=== PATIENT | female | born 2000 | race Caucasian/White ===

== ENCOUNTER 2018-04-30 11:02 | Emergency (ER) | payer OTHER ==
[~2018-04-30] VITALS: Ht 154.9 cm; Wt 51.3 kg
[2018-04-30 11:04] VITALS: Ht 154.9 cm; Wt 51.3 kg
[2018-04-30] MEDS ORDERED: SODIUM CHLORIDE 0.9% 1000ML 1,000 ML IV STA (11:31)
[2018-04-30 11:50] LABS: BASO % 0.6 %; BASO ABS # 0.05 K/uL (0-0.2); EOS % 2.6 %; EOS ABS # 0.21 K/uL (0-0.5); HEMOGLOBIN 14.1 g/dL (12.0-16.0); IG# 0.02 K/uL (0.00-0.02); LYMPH ABS # 1.96 K/uL (1.2-3.4); MEAN CELL VOLUME 83.5 fL (80-100); MEAN CORPUSCULAR HEMOGLOBIN 28.7 pg (25-34); MEAN CORPUSCULAR HGB CONC 34.4 g/dl (32-36); MEAN PLATELET VOLUME 10.2 fL (7.4-10.4); MONO % 7.6 %; MONO ABS # 0.62 K/uL (0.11-0.59); NEUT ABS # 5.29 K/uL (1.4-6.5); PLATELET COUNT 262 K/uL (130-400); RED CELL DISTRIBUTION WIDTH CV 12.3 % (11.5-14.5); RED CELL DISTRIBUTION WIDTH SD 37.3 fL (36.4-46.3); WHITE BLOOD COUNT 8.15 K/uL (4.8-10.8)
[2018-04-30] MEDS ORDERED: OPTIRAY 320 IV PRN (12:00)
[2018-04-30 12:01] LABS: ALBUMIN 4.4 gm/dl (3.4-5.0); CALCIUM 8.9 mg/dl (8.5-10.1); CREATININE 0.67 mg/dl (0.60-1.20); POTASSIUM 3.9 mmol/L (3.5-5.1); TOTAL PROTEIN 8.5 gm/dl (6.4-8.2)
[2018-04-30] MEDS ORDERED: FLUO20CA35 PO (12:01)
[2018-04-30] MEDS ORDERED: KLN/5 PO (12:01)
--- NOTE | 2018-04-30 14:09 | DIAGNOSTIC IMAGING REPORT ---
APPENDIX ULTRASOUND HISTORY: 17 years-old Female EVAL RLQ PAIN acute right lower quadrant abdominal pain COMPARISON: None available TECHNIQUE: Multiple real-time sonogram images of the abdominal right lower quadrant were obtained assessing grayscale appearance and color flow FINDINGS: The appendix is not identified. No drainable fluid collections, adenopathy, hyperemia, echogenic fat or hypoperistaltic bowel. IMPRESSION: Nonvisualization of the appendix. No secondary signs to suggest acute appendicitis. The above report was generated using voice recognition software. It may contain grammatical, syntax or spelling errors. Electronically signed by: Lj Mcgill M.D. 04/30/2018 2:08 PM Dictated Date/Time: 04/30/2018 2:08 PM
--- NOTE | 2018-04-30 15:18 | DIAGNOSTIC IMAGING REPORT ---
ABDOMEN AND PELVIS CT WITH IV AND ORAL CONTRAST CT DOSE: 249.50 mGycm HISTORY: Acute right lower quadrant abdominal pain EVAL LOWER ABD PAIN TECHNIQUE: Multiaxial CT images of the abdomen and pelvis were performed following the use of intravenous and oral contrast. A dose lowering technique was utilized adhering to the principles of ALARA. COMPARISON STUDY: Ultrasound of the abdominal right lower quadrant and pelvic ultrasound of same day. FINDINGS: Lung bases appear clear. No pneumatosis or pneumoperitoneum. Imaged inferior cardiac chambers are unremarkable. Liver, spleen, gallbladder, pancreas and adrenal glands are unremarkable. Kidneys, ureters and bladder are within normal limits. Uterus and right adnexum are unremarkable. Peripherally enhancing cystic lesion about the left ovary measures 3.8 x 3.0 cm. Mild free pelvic fluid. The aorta and IVC are unremarkable. There are no pathologically enlarged lymph nodes identified. Patent portal vein. No bowel obstruction or focal bowel wall thickening. The appendix is contrast filled and appears normal. No evidence of acute appendicitis. No acute mesenteric inflammatory changes. Soft tissues and imaged breast parenchyma appear unremarkable. Bones appear intact. IMPRESSION: 1. Peripherally enhancing cystic lesion about the left adnexum measuring 3.8 x 3.0 cm suggests ovarian cyst. Correlation with pelvic ultrasound recommended. Mild free pelvic fluid is likely physiologic. 2. No bowel obstruction or focal bowel wall thickening. Normal appendix. Electronically signed by: Lj Mcgill M.D. 04/30/2018 3:16 PM Dictated Date/Time: 04/30/2018 3:10 PM
--- NOTE | 2018-04-30 17:09 | DIAGNOSTIC IMAGING REPORT ---
PELVIC COMPLETE NON OB CLINICAL HISTORY: EVAL PELVIC PAIN PAIN COMPARISON STUDY: CT abdomen and pelvis same date FINDINGS: The uterus measured 7.6 cm. The endometrial stripe measured 11 mm. The right ovary measured 3.2 cm maximum dimension with normal vascular flow. The left ovary measured 4.9 cm maximum dimension including a 2.6 cm complex left ovarian cyst. There is no ultrasonographic evidence of ovarian torsion. It should be noted that ovarian torsion can be present with normal Doppler ultrasonographic findings. There was no evidence of pathologic free pelvic fluid. IMPRESSION: 1. 2.6 cm complex left ovarian cyst versus hemorrhagic ovarian cyst. 2. Follow-up at a later date is recommended to ensure complete resolution. The above report was generated using voice recognition software. It may contain grammatical, syntax or spelling errors. Electronically signed by: Gómez Calle M.D. 04/30/2018 5:08 PM Dictated Date/Time: 04/30/2018 5:05 PM
--- NOTE | 2018-04-30 17:16 | EMERGENCY ROOM VISIT NOTE ---
History First contact with patient: 11:09 Chief Complaint: ABDOMINAL PAIN Stated Complaint: PAIN UNDER MY BELLY Nursing Triage Summary: Patient c/o lower abd pain x 2 days. History of Present Illness Patient is a 17-year-old female who presents the emergency department for evaluation of pelvic pain 2 days. Patient reports that her symptoms started 2 days ago in the evening, when she developed a pain below her bellybutton. She states that the pain kept her from sleeping, and she has difficulty finding a comfortable position. She did take a Midol which helped to take the edge off and she was able to sleep. When she woke up yesterday morning she was pain- free. She did note feeling subjectively feverish and nauseous throughout the day. Pain returned again around 830 last evening. He was in the same location below the bellybutton, and was worse. She would have rated it a 9/10 at its worse last night. She took 2 Midol which helped to bring her pain down to a 3, and she was able to sleep last night. The pain persisted when she woke up this morning. She describes it as a cramping pain in her lower abdomen that does not radiate. She reports nausea and anorexia without vomiting. She reports pressure with voiding but denies dysuria, frequency or urgency. Her bowel movements have been normal. She has never had pain similar to this previously. She denies any gynecologic history. She has not been sexually active. She went to [facility] this morning, and they referred her here for evaluation. Last menstrual period was 6/15, she states that she cannot be , but does state that the fact that she has not had a period in almost 6 weeks is abnormal for her. She presently rates her pain a 5/10. Review of Systems Review of systems as per HPI. All other systems reviewed were negative. 10 systems reviewed. Past Medical/Surgical History Medical Problems: (1) Anxiety and depression (2) Lactose intolerance The patient has no old records at our facility for review. Social History Smoking Status: Never Smoker Alcohol Use: none Marital Status: single Housing Status: lives with roommate Occupation Status: [employer] student Current/Historical Medications Scheduled Fluoxetine (Prozac), 20 MG PO QAM Scheduled PRN Clonazepam (Klonopin), 1-2 TABS PO HS PRN for Sleep Physical Exam Vital Signs Date Time Temp Pulse Resp B/P (MAP) Pulse Ox O2 Delivery O2 Flow Rate FiO2 04/30/18 17:43 36.7 77 16 111/77 100 04/30/18 17:17 77 16 111/77 100 Room Air 04/30/18 16:00 77 16 117/83 100 Room Air 04/30/18 13:12 77 16 111/79 100 Room Air 04/30/18 12:35 75 16 129/77 100 Room Air 04/30/18 12:06 75 16 110/75 100 Room Air 04/30/18 11:34 75 16 114/73 100 Room Air 04/30/18 11:04 36.7 88 16 106/72 98 Room Air Physical Exam CONSTITUTIONAL: Patient is a well-appearing 17-year-old female who is awake and alert and in no acute distress. EYES: Pupils equal, round, reactive to light and accommodation. EOMs intact without nystagmus. Sclera are anicteric. ENT: Tympanic membranes intact, with normal landmarks. External canals are clear. Oral and nasopharynx are clear. Mucous membranes are moist, no lesions , tongue and gums appear normal. CARDIOVASCULAR: Regular rate and rhythm, with normal S1 and S2, no murmur or gallop or rub is heard. No carotid bruits auscultated. No JVD. Peripheral pulses easily palpable. RESPIRATORY: Breath sounds equal and clear to auscultation without wheezes, rales, or rhonchi heard. Full and equal chest expansion without accessory muscle use or retractions. ABDOMEN: Bowel sounds are present. Abdomen is soft, scaphoid, tender to percussion throughout the entire lower abdomen. She is tenderness to palpation in the left and the right lower quadrants, without guarding, rebound or rigidity. INTEGUMENTARY: No lesions or rash, normal skin turgor. LYMPH: No lymphadenopathy. Medical Decision & Procedures ER Provider Diagnostic Interpretation: APPENDIX ULTRASOUND HISTORY: 17 years-old Female EVAL RLQ PAIN acute right lower quadrant abdominal pain COMPARISON: None available TECHNIQUE: Multiple real-time sonogram images of the abdominal right lower quadrant were obtained assessing grayscale appearance and color flow FINDINGS: The appendix is not identified. No drainable fluid collections, adenopathy, hyperemia, echogenic fat or hypoperistaltic bowel. IMPRESSION: Nonvisualization of the appendix. No secondary signs to suggest acute appendicitis. ABDOMEN AND PELVIS CT WITH IV AND ORAL CONTRAST CT DOSE: 249.50 mGycm HISTORY: Acute right lower quadrant abdominal pain EVAL LOWER ABD PAIN TECHNIQUE: Multiaxial CT images of the abdomen and pelvis were performed following the use of intravenous and oral contrast. A dose lowering technique was utilized adhering to the principles of ALARA. COMPARISON STUDY: Ultrasound of the abdominal right lower quadrant and pelvic ultrasound of same day. FINDINGS: Lung bases appear clear. No pneumatosis or pneumoperitoneum. Imaged inferior cardiac chambers are unremarkable. Liver, spleen, gallbladder, pancreas and adrenal glands are unremarkable. Kidneys, ureters and bladder are within normal limits. Uterus and right adnexum are unremarkable. Peripherally enhancing cystic lesion about the left ovary measures 3.8 x 3.0 cm. Mild free pelvic fluid. The aorta and IVC are unremarkable. There are no pathologically enlarged lymph nodes identified. Patent portal vein. No bowel obstruction or focal bowel wall thickening. The appendix is contrast filled and appears normal. No evidence of acute appendicitis. No acute mesenteric inflammatory changes. Soft tissues and imaged breast parenchyma appear unremarkable. Bones appear intact. IMPRESSION: 1. Peripherally enhancing cystic lesion about the left adnexum measuring 3.8 x 3.0 cm suggests ovarian cyst. Correlation with pelvic ultrasound recommended. Mild free pelvic fluid is likely physiologic. 2. No bowel obstruction or focal bowel wall thickening. Normal appendix. PELVIC COMPLETE NON OB CLINICAL HISTORY: EVAL PELVIC PAIN PAIN COMPARISON STUDY: CT abdomen and pelvis same date FINDINGS: The uterus measured 7.6 cm. The endometrial stripe measured 11 mm. The right ovary measured 3.2 cm maximum dimension with normal vascular flow. The left ovary measured 4.9 cm maximum dimension including a 2.6 cm complex left ovarian cyst. There is no ultrasonographic evidence of ovarian torsion. It should be noted that ovarian torsion can be present with normal Doppler ultrasonographic findings. There was no evidence of pathologic free pelvic fluid. IMPRESSION: 1. 2.6 cm complex left ovarian cyst versus hemorrhagic ovarian cyst. 2. Follow-up at a later date is recommended to ensure complete resolution. Laboratory Results 04/30/18 11:22 Red Blood Count 4.91, Mean Corpuscular Volume 83.5, Mean Corpuscular Hemoglobin 28.7, Mean Corpuscular Hemoglobin Concent 34.4, Mean Platelet Volume 10.2, Neutrophils (%) (Auto) 65.0, Lymphocytes (%) (Auto) 24.0, Monocytes (%) (Auto) 7.6, Eosinophils (%) (Auto) 2.6, Basophils (%) (Auto) 0.6, Neutrophils # (Auto) 5.29, Lymphocytes # (Auto) 1.96, Monocytes # (Auto) 0.62, Eosinophils # (Auto) 0.21, Basophils # (Auto) 0.05 04/30/18 11:22 Test 04/30/18 11:13 04/30/18 11:22 Urine Color YELLOW Urine Appearance CLEAR (CLEAR) Urine pH 6.5 (4.5-7.5) Urine Specific [place] 1.024 (1.000-1.030) Urine Protein NEG (NEG) Urine Glucose (UA) NEG (NEG) Urine Ketones NEG (NEG) Urine Occult Blood NEG (NEG) Urine Nitrite NEG (NEG) Urine Bilirubin NEG (NEG) Urine Urobilinogen NEG (NEG) Urine Leukocyte Esterase NEG (NEG) Urine Test NEG (NEG) White Blood Count 8.15 K/uL (4.8-10.8) Red Blood Count 4.91 M/uL (4.2-5.4) Hemoglobin 14.1 g/dL (12.0-16.0) Hematocrit 41.0 % (37-47) Mean Corpuscular Volume 83.5 fL (80-100) Mean Corpuscular Hemoglobin 28.7 pg (25-34) Mean Corpuscular Hemoglobin Concent 34.4 g/dl (32-36) Platelet Count 262 K/uL (130-400) Mean Platelet Volume 10.2 fL (7.4-10.4) Neutrophils (%) (Auto) 65.0 % Lymphocytes (%) (Auto) 24.0 % Monocytes (%) (Auto) 7.6 % Eosinophils (%) (Auto) 2.6 % Basophils (%) (Auto) 0.6 % Neutrophils # (Auto) 5.29 K/uL (1.4-6.5) Lymphocytes # (Auto) 1.96 K/uL (1.2-3.4) Monocytes # (Auto) 0.62 K/uL (0.11-0.59) Eosinophils # (Auto) 0.21 K/uL (0-0.5) Basophils # (Auto) 0.05 K/uL (0-0.2) RDW Standard Deviation 37.3 fL (36.4-46.3) RDW Coefficient of Variation 12.3 % (11.5-14.5) Immature Granulocyte % (Auto) 0.2 % Immature Granulocyte # (Auto) 0.02 K/uL (0.00-0.02) Anion Gap 7.0 mmol/L (3-11) Est Creatinine Clear Calc Drug Dose 101.8 ml/min Estimated GFR () 147.7 Estimated GFR (Non- 127.4 BUN/Creatinine Ratio 12.7 (10-20) Calcium Level 8.9 mg/dl (8.5-10.1) Total Bilirubin 0.6 mg/dl (0.2-1) Aspartate Amino Transf (AST/SGOT) 11 U/L (15-37) Alanine Aminotransferase (ALT/SGPT) 16 U/L (12-78) Alkaline Phosphatase 68 U/L (45-117) Total Protein 8.5 gm/dl (6.4-8.2) Albumin 4.4 gm/dl (3.4-5.0) Globulin 4.1 gm/dl (2.5-4.0) Albumin/Globulin Ratio 1.1 (0.9-2) Lipase 90 U/L (73-393) Medications Administered Medications (Trade) Dose Ordered Sig/Sheila Route Start Time Stop Time Status Last Admin Dose Admin Sodium Chloride 1,000 ml @ 250 mls/hr Q4H STAT IV 04/30/18 11:31 04/30/18 15:30 DC 04/30/18 11:42 250 MLS/HR ED Course The patient was seen and evaluated as above. She has no old records available for review. She presents to the emergency department for evaluation of lower abdominal pain 2 days. On exam, she is tender in both the left of the right lower quadrants. She was offered medication for discomfort, but declined. IV lock was initiated and she was hydrated with normal saline solution. CBC with differential, CMP, lipase, urinalysis and urine test were performed. Pelvic and abdominal ultrasound was ordered as well as CT scan of the abdomen and pelvis with IV and oral contrast. Patient started the oral prep for her CT scan. There was a significant delay in getting the patient's ultrasound, and once there, the patient refused transvaginal scanning, and bladder was not full enough for transabdominal imaging. The appendiceal ultrasound did not visualize the appendix. There were no secondary signs of acute appendicitis noted. The patient was returned to the emergency department where she did undergo the CT scan of the abdomen with IV and oral contrast. Patient's laboratory studies revealed a normal white count. No left shift or bandemia. H&H is normal. Electrolytes, renal functions, liver functions and pancreatic enzymes are normal. Urine sample is completely clear, and test is negative. CT scan of the abdomen and pelvis noted a peripherally enhancing cystic lesion in the left adnexal region measuring roughly 3.8 x 3 cm suggestive of an ovarian cyst. Pelvic ultrasound correlation was recommended. The appendix was visualized and was normal. There is no evidence for bowel obstruction or bowel wall thickening. The patient was made aware of the results of her laboratory studies and her CT scan. Given the findings on CT, I did recommend that the patient complete the pelvic ultrasound, performed transabdominally. She was given oral fluids and returned to ultrasound when her bladder was full. Pelvic ultrasound confirmed a 2.6 cm complex left ovarian cyst, possibly hemorrhagic in nature. Remainder of her ultrasound was normal. Ultrasound findings were discussed with the patient. Supportive care measures were outlined. She was advised that the cyst would need to be followed by gynecology to resolution. She can either follow-up with [facility] or with [facility] for further care and management. She was educated on the worrisome signs or symptoms for which she should return to the emergency department. She was discharged to home in good condition, rating her pain a 0/10 at discharge. Differential diagnoses entertained included UTI, pyelonephritis, renal colic, , ectopic , dysmenorrhea, ovarian cyst, ovarian torsion, PID, tubo-ovarian abscess, appendicitis, among others. Medical Decision See emergency department course. Medication Reconcilliation Current Medication List: was personally reviewed by [place] Blood Pressure Screening Patient's blood pressure: Normal blood pressure Blood pressure disposition: Did not require urgent referral Impression Primary Impression: Left ovarian cyst Departure Information Referrals Grace Kolb MD [facility] Patient Instructions [facility] Additional Instructions Ibuprofen(Motrin, Advil) may be used for fever or pain. Use 600mg every six hours as needed. Take with food. Avoid using more than 2400mg in a 24 hour period. Do not use 2400mg per day for more than three consecutive days without physician direction. Prolonged inappropriate use can lead to stomach upset or ulcers. This is available over the counter and typically comes in 200mg tablets. (AND/OR) Acetaminophen(Tylenol) may be used for fever or pain. Use 1000mg every eight hours as needed. Avoid using more than 3000mg in a 24 hour period. This is available over the counter. Heating pad to the abdomen as needed for discomfort. Diet and activity as tolerated. Continue current medications. Return to the ER immediately for worsening or persistent abdominal pain, vomiting, fevers, chest pains, difficulty breathing, black or bloody stools, worsening of your condition, or as needed. Follow up with [facility] or with [facility] next week for recheck. You will need a repeat ultrasound in roughly 6 weeks to reevaluate the cyst.
[2018-04-30 17:43] VITALS: BP 111/77; PULSE 77; TEMP 36.7; O2SAT 100
== END 2018-04-30 17:43 | disposition home or self-care (01) ==
LOC: C.EDB 11:03 → C.EDC 17:43
DX: N83.202 Unspecified ovarian cyst, left side (principal); F32.9 Major depressive disorder, single episode, unspecified